=== PATIENT | male | born 1945 | race Caucasian/White ===

== ENCOUNTER 2016-08-25 00:48 | Emergency (ER) | payer OTHER ==
[~2016-08-25] VITALS: Ht 190.5 cm; Wt 98.9 kg
[~2016-08-25 00:48] MED LIST: ALPRAZOLAM0.25 M2 PO; AMBIEN10 MG PO; ASMANEX0.135 GM IH; ASPIR-LOW81 MG PO; ASPIRIN325 MG PO; ATARAX10 MG PO; Ambien PO; Asmanex Twisthaler 1 IH; Azulfidine PO; B-123000 MCG; BACTRIM,SEPT1 TABLET PO; BACTROBAN CREAM15 GM TP; BENADRYL25 MG PO; BUPROPION HCL75 MG PO; CALCIUM + VIT1 EACH PO; CLINDAMYCIN HC300 MG PO; CYANOCOBALAM1000 MCG PO; CYCLOBENZAPRINE10 MG PO; DECADRON4 MG PO; DOCUSATE SODIU100 MG PO; Ecotrin PO; FINASTERIDE5 MG PO; FOLIC ACID1 MG PO; HUMIRA; HUMIRA40 MG/0.1 SC; HYTRIN5 MG PO; MOBIC15 MG PO; MULTIVITAMIN PO; NAPROSYN500 MG PO; NAPROXEN250 MG PO; NICORETTE BC; NICORETTE4 MG BC; NICOTINE PATCH1 EAC1 TD; NORCO 5/3251 TABLET PO; OMEPRAZOLE20 M2 PO; OMEPRAZOLE20 MG PO; PERCOCET 5/31 TABLET PO; PREDNISONE20 MG PO; PREDNISONE5 MG PO; PREDNISONE50 MG PO; Proscar PO; REMERON15 M2 PO; SANTYL30 GM TP; SULFADIAZINE500 MG PO; SULFASALAZINE; SULFASALAZINE500 MG PO; SULFAZINE EC500 MG PO; TERAZOSIN HCL10 MG PO; THERAGRAN1 TABLET PO; TRAZODONE HCL100 MG PO; Thiamine,Vitamin B1 PO; VENTOLIN HFA18 GM IH; VITAMIN B-1100 MG PO; ZANTAC300 MG PO; predniSONE PO
[2016-08-25 01:43] LABS: HEMATOCRIT 41.5 % (38.0-50.0); MCH 30.8 PG (29.0-34.0); MCHC 33.7 G/DL (30.0-36.0); MCV 91.2 FL (86-99); MEAN PLAT.VOLUME 9.6 uM^3 (9.0-12.4); PLATELET COUNT 327 K/uL (156-360); RBC DIS.WIDTH-CV 15.8 % (11.8-14.6); RBC DIS.WIDTH-SD 50.3 % (39-53); RED BLOOD COUNT 4.55 M/uL (4.00-5.50); WHITE BLOOD COUNT 8.9 K/uL (4.1-10.2)
[2016-08-25 01:51] LABS: CHLORIDE 107 mEq/L (99-109); POTASSIUM 3.6 mEq/L (3.7-5.4); SODIUM 142 mEq/L (136-147)
[2016-08-25 01:53] LABS: GLUCOSE 150 mg/dL (70-99)
[2016-08-25 01:54] LABS: ANION GAP 15 MEQ/L (2-14); INTER. NORMALIZED RATIO 1.1; PTT 26.2 (25-32)
[2016-08-25 01:56] LABS: SERUM ETHYL ALCOHOL 217 mg/dL
[2016-08-25 01:57] LABS: GFR ESTIMATE (CALCULATED) > 59 mL/min/
[2016-08-25 01:58] LABS: UREA NITROGEN (BUN) 7 mg/dL (9-23)
[2016-08-25 05:52] VITALS: BP 111/76
== END 2016-08-25 05:52 | disposition home or self-care (01) ==
LOC: EME → EDBD 00:56 → EME 00:56
PROVIDERS: Emergency Medicine
DX: S01.81XA Laceration without foreign body of other part of head, initial encounter (principal); S60.511A Abrasion of right hand, initial encounter; S62.91XA Unspecified fracture of right hand, initial encounter for closed fracture; F10.129 Alcohol abuse with intoxication, unspecified; Y90.7 Blood alcohol level of 200-239 mg/100 ml; W05.0XXA Fall from non-moving wheelchair, initial encounter; J44.9 Chronic obstructive pulmonary disease, unspecified; K21.9 Gastro-esophageal reflux disease without esophagitis; M06.9 Rheumatoid arthritis, unspecified; B19.20 Unspecified viral hepatitis C without hepatic coma; Z87.891 Personal history of nicotine dependence
CPT/HCPCS: 70450; 72125; 73130; 80048; 85027; 85610; 85730; 99281; 99285; G0480

== ENCOUNTER 2016-12-15 03:10 | Emergency (ER) | payer OTHER ==
[~2016-12-15] VITALS: Ht 188 cm; Wt 106.7 kg
[2016-12-15 05:08] LABS: CHLORIDE 103 mEq/L (99-109); POTASSIUM 3.4 mEq/L (3.7-5.4); SODIUM 137 mEq/L (136-147)
[2016-12-15 05:10] LABS: GLUCOSE 100 mg/dL (70-99)
[2016-12-15 05:11] LABS: ANION GAP 13 MEQ/L (2-14)
[2016-12-15 05:13] LABS: GFR ESTIMATE (CALCULATED) > 59 mL/min/; SERUM ETHYL ALCOHOL 225 mg/dL
[2016-12-15 05:14] LABS: UREA NITROGEN (BUN) 7 mg/dL (9-23)
[2016-12-15 05:22] LABS: HEMATOCRIT 43.8 % (38.0-50.0); MCH 31.3 PG (29.0-34.0); MCHC 34.2 G/DL (30.0-36.0); MCV 91.4 FL (86-99); MEAN PLAT.VOLUME 9.8 uM^3 (9.0-12.4); PLATELET COUNT 268 K/uL (156-360); RBC DIS.WIDTH-CV 15.1 % (11.8-14.6); RBC DIS.WIDTH-SD 50.7 % (39-53); RED BLOOD COUNT 4.79 M/uL (4.00-5.50)
[2016-12-15 05:33] LABS: INTER. NORMALIZED RATIO 1.1; PROTHROMBIN TIME 11.4 (9.2-11.2); PTT 28.2 (25-32)
[2016-12-15 06:33] VITALS: BP 132/85
== END 2016-12-15 06:39 | disposition home or self-care (01) ==
LOC: EME 03:10
PROVIDERS: Emergency Medicine
PROC: 0HQ0XZZ Repair Scalp Skin, External Approach (ICD-10-PCS; principal; 2016-12-15)
DX: S01.01XA Laceration without foreign body of scalp, initial encounter (principal); F10.129 Alcohol abuse with intoxication, unspecified; Y90.7 Blood alcohol level of 200-239 mg/100 ml; W01.198A Fall on same level from slipping, tripping and stumbling with subsequent striking against other object, initial encounter; J44.9 Chronic obstructive pulmonary disease, unspecified; Z88.2 Allergy status to sulfonamides; Z88.1 Allergy status to other antibiotic agents; Z87.891 Personal history of nicotine dependence
CPT/HCPCS: 70450; 71010; 72125; 80048; 85027; 85610; 85730; 99281; 99284; G0480

== ENCOUNTER 2017-10-05 17:55 | Inpatient (IN) | payer OTHER ==
[~2017-10-05] VITALS: Ht 190.5 cm; Wt 95.0 kg
[2017-10-05 18:29] LABS: HEMATOCRIT 41.2 % (38.0-50.0); HEMOGLOBIN 14.8 G/DL (12.5-16.6); MCH 35.3 PG (29.0-34.0); MCHC 35.9 G/DL (30.0-36.0); MCV 98.3 FL (86-99); PLATELET COUNT 239 K/uL (156-360); RBC DIS.WIDTH-CV 13.2 % (11.8-14.6); RBC DIS.WIDTH-SD 47.8 % (39-53); RED BLOOD COUNT 4.19 M/uL (4.00-5.50); WHITE BLOOD COUNT 11.9 K/uL (4.1-10.2)
[2017-10-05 18:32] LABS: INTER. NORMALIZED RATIO 1.1
[2017-10-05 18:34] LABS: CHLORIDE 97 mEq/L (99-109); POTASSIUM 3.3 mEq/L (3.7-5.4); SODIUM 134 mEq/L (136-147)
[2017-10-05 18:35] LABS: PTT 33.9 SEC (25-37)
[2017-10-05 18:36] LABS: GLUCOSE 161 mg/dL (70-99)
[2017-10-05 18:40] LABS: CREATININE 0.7 mg/dL (0.6-1.3); GFR ESTIMATE (CALCULATED) > 59 mL/min/ (58.99-99999)
[2017-10-05 18:41] LABS: UREA NITROGEN (BUN) 10 mg/dL (9-23)
[2017-10-05 18:49] LABS: TROP-I INTERPRETATION NEGATIVE; TROPONIN-I 0.02 ng/mL (0.0-0.30)
[2017-10-05 18:56] LABS: SERUM ETHYL ALCOHOL < 10 mg/dL
[2017-10-05 19:15] LABS: ABS NEUTROPHIL COUNT 9.7; ANISOCYTOSIS 1+; BAND NEUTROPHILS 20.2 % (0-8.0); EOSINOPHIL ABS CT 0; LYMPHOCYTES 3.5 % (15.0-45.0); MACROCYTES 1+; MONOCYTES 7.9 % (0-9.0); PLAT.SUFFICIENCY ADEQUATE; SEG.NEUTROPHILS 61.4 % (46.0-76.0)
[2017-10-05] MEDS ORDERED: ALEVE220 MG PO (20:18)
[2017-10-05] MEDS ORDERED: ZYRTEC10 M3 PO (20:18)
[2017-10-06 06:18] LABS: HEMATOCRIT 38.4 % (38.0-50.0); HEMOGLOBIN 13.9 G/DL (12.5-16.6); MCH 35.5 PG (29.0-34.0); MCHC 36.2 G/DL (30.0-36.0); PLATELET COUNT 231 K/uL (156-360); RBC DIS.WIDTH-CV 13.2 % (11.8-14.6); RBC DIS.WIDTH-SD 48.1 % (39-53); RED BLOOD COUNT 3.92 M/uL (4.00-5.50); WHITE BLOOD COUNT 10.4 K/uL (4.1-10.2)
[2017-10-06 06:29] LABS: ALBUMIN 2.9 g/dL (3.2-4.8)
[2017-10-06 06:30] LABS: CHLORIDE 99 mEq/L (99-109); POTASSIUM 3.4 mEq/L (3.7-5.4); SODIUM 135 mEq/L (136-147)
[2017-10-06 06:32] LABS: GLUCOSE 150 mg/dL (70-99); TOTAL PROTEIN 6.6 g/dL (6.4-8.3)
[2017-10-06 06:34] LABS: TOTAL BILIRUBIN 1.6 mg/dL (0.0-1.0)
[2017-10-06 06:35] LABS: ALKALINE PHOSPHATASE 92 IU/L (3-129)
[2017-10-06 06:36] LABS: CREATININE 0.6 mg/dL (0.6-1.3); GFR ESTIMATE (CALCULATED) > 59 mL/min/ (58.99-99999)
[2017-10-06 06:37] LABS: AST (GOT) 75 IU/L (2-34); UREA NITROGEN (BUN) 9 mg/dL (9-23)
[2017-10-06 06:39] LABS: ALT (GPT) 58 IU/L (3-49)
[2017-10-06 07:10] VITALS: BP 107/65
[2017-10-06] MEDS ORDERED: HUMIRA40 MG/0.1 IM/SC (08:33)
[2017-10-06 10:13] VITALS: BP 162/93
[2017-10-06 11:36] VITALS: BP 93/52
[2017-10-06 13:24] VITALS: BP 138/78
[2017-10-06 15:08] VITALS: BP 138/78
[2017-10-06 20:00] VITALS: BP 126/80
[2017-10-07] VITALS (7 sets, daily range): BP systolic 101–170; BP diastolic 56–95
[2017-10-07 06:26] LABS: HEMATOCRIT 39.5 % (38.0-50.0); HEMOGLOBIN 13.5 G/DL (12.5-16.6); MCH 34.4 PG (29.0-34.0); MCHC 34.2 G/DL (30.0-36.0); MCV 100.8 FL (86-99); PLATELET COUNT 209 K/uL (156-360); RBC DIS.WIDTH-CV 13.7 % (11.8-14.6); RBC DIS.WIDTH-SD 50.9 % (39-53); RED BLOOD COUNT 3.92 M/uL (4.00-5.50)
[2017-10-07 07:06] LABS: ANISOCYTOSIS 1+; BASOPHIL (%) 0.2 % (0-1); EOSINOPHIL (%) 0 % (0-5); IMMATURE GRANULOCYTE (%) 0.9 % (0.0-0.7); LYMPHOCYTE (%) 19.7 % (15-42); LYMPHOCYTE COUNT 1.6 K/uL (1.0-2.8); MACROCYTES 1+; MONOCYTE (%) 4.9 % (3-12); MONOCYTE COUNT 0.4 K/uL (0-0.8); NEUTROPHIL (%) 74.3 % (45-76)
[2017-10-07 07:26] LABS: ALBUMIN 2.8 G/DL (3.2-4.8); ALKALINE PHOSPHATASE 82 IU/L (3-129); ALT (GPT) 39 IU/L (3-49); AST (GOT) 32 IU/L (2-34); CHLORIDE 100 MEQ/L (99-109); CREATININE 0.6 MG/DL (0.6-1.3); GFR ESTIMATE (CALCULATED) > 59 mL/min/ (58.99-99999); GLUCOSE 212 mg/dL (70-99); SODIUM 136 MEQ/L (136-147); TOTAL BILIRUBIN 0.7 MG/DL (0.0-1.0); TOTAL PROTEIN 6.3 G/DL (6.4-8.3); UREA NITROGEN (BUN) 13 mg/dL (9-23)
[2017-10-07 07:28] LABS: POTASSIUM 4.3 MEQ/L (3.7-5.4)
[2017-10-08 03:36] VITALS: BP 133/87
[2017-10-08 08:31] VITALS: BP 134/74
[2017-10-08 11:03] LABS: HEMOGLOBIN A1c (GLYCOHEMOGLOB) 6.1 % (Below 5.7)
[2017-10-08 11:15] VITALS: BP 124/79
[2017-10-08 15:44] VITALS: BP 154/90
[2017-10-08 19:20] VITALS: BP 183/103
[2017-10-09 00:09] VITALS: BP 145/87
[2017-10-09 01:06] LABS: QGTB-NIL 0.03 IU/mL (()); QUANTIFERON TB GOLD NEGATIVE (Negative); TB AG-NIL 0.01 IU/mL (())
[2017-10-09 04:12] VITALS: BP 170/97
[2017-10-09 07:45] VITALS: BP 137/71
[2017-10-09 11:08] VITALS: BP 150/78
[2017-10-09] MEDS ORDERED: LEVAQUIN750 MG PO (12:16)
[2017-10-09] MEDS ORDERED: DUONEB 2.5-0.5 M3 ML AEROSOL (12:48)
[2017-10-09] MEDS ORDERED: NICODERM CQ1 EAC2 TD (14:49)
[2017-10-09] MEDS ORDERED: PREDNISONE10 MG PO (14:51)
== END 2017-10-09 16:49 | disposition home health service (06) | DRG 871 ==
LOC: EME 17:55 → EDOF 20:17 → ENRESERV 20:21 → 5WEST 10-06 07:15
PROVIDERS: Internal Medicine; Internal Medicine Infectious Disease; Internal Medicine Pulmonary Disease; Nurse Practitioner Family; Student in an Organized Health Care Education/Training Program
DX: A41.9 Sepsis, unspecified organism (principal); J18.9 Pneumonia, unspecified organism; J44.1 Chronic obstructive pulmonary disease with (acute) exacerbation; I48.0 Paroxysmal atrial fibrillation; J44.0 Chronic obstructive pulmonary disease with (acute) lower respiratory infection; E87.6 Hypokalemia; E87.1 Hypo-osmolality and hyponatremia; I48.2 Chronic atrial fibrillation; F10.10 Alcohol abuse, uncomplicated; J20.9 Acute bronchitis, unspecified; B18.2 Chronic viral hepatitis C; F12.90 Cannabis use, unspecified, uncomplicated; K21.9 Gastro-esophageal reflux disease without esophagitis; M06.9 Rheumatoid arthritis, unspecified; L29.9 Pruritus, unspecified; G47.00 Insomnia, unspecified; I87.8 Other specified disorders of veins; F17.210 Nicotine dependence, cigarettes, uncomplicated; T38.0X5A Adverse effect of glucocorticoids and synthetic analogues, initial encounter; Z83.3 Family history of diabetes mellitus; Z91.19 Patient's noncompliance with other medical treatment and regimen; Z81.8 Family history of other mental and behavioral disorders; Z86.19 Personal history of other infectious and parasitic diseases; Z79.899 Other long term (current) drug therapy; Z88.2 Allergy status to sulfonamides; Z22.322 Carrier or suspected carrier of Methicillin resistant Staphylococcus aureus; R09.02 Hypoxemia
CPT/HCPCS: 71046; 71275; 80048; 80053; 82948; 83036; 83605; 84484; 85025; 85027; 85610; 85730; 86480 90; 87040; 87070; 87116; 87205; 87206; 87449; 87641; 93005; 94640; 94640 76; 94760; 94799; 97530 GP; 99202; 99281; 99284; G0378; G0480; G8978 GP CJ; G8979 GP CH; J0360; J0456; J0696; J1650; J1815; J2920; J7030; J7120; J7644